=== PATIENT | female | born 1940 | race Caucasian/White ===

== ENCOUNTER 2022-09-27 07:43 | Outpatient (CLI) | payer BC, SELFPAY ==
--- NOTE | 2022-09-27 08:15 | CRLHL7_ITS ---
For Patients: As a result of the Century Cures Act, medical imaging exams and procedure reports are released immediately into your electronic medical record. You may view this report before your referring provider. If you have questions, please contact your health care provider. Indication: LT HIP OSTEOARTHRITIS Procedure : Informed consent was obtained. The site was marked. Time-out was performed. The skin of the left hip was cleansed with ChloraPrep. A sterile drape was placed. 8 cc of 1 percent lidocaine was administered for superficial anesthesia. Subsequently a 22 gauge spinal needle was introduced into the left hip joint under intermittent fluoroscopic guidance. 7 cc 1 percent lidocaine and 2 cc 40 milligram/cc Depo-Medrol then injected into the left hip. The needle was removed and hemostasis achieved with direct pressure. A dressing was placed. The patient tolerated the procedure well without immediate complication. Total fluoroscopy time 9 seconds. Impression: Successful fluoroscopically guided left hip with 80 milligrams of Depo-Medrol. Dictated by Alvarez Daugherty MD @ 09/27/2022 9:26:19 AM (Electronically Signed)
== END 2022-09-27 07:44 | disposition home or self-care (01) ==
PROVIDERS: PCP Family Medicine; Visit Provider Physician Assistant Surgical
DX: M16.12 Unilateral primary osteoarthritis, left hip (principal)
CPT/HCPCS: 20610; 77002

== ENCOUNTER 2022-10-15 13:29 | Outpatient (CLI) | payer BC, SELFPAY ==
--- NOTE | 2022-10-15 14:18 | PC.NURSE ---
20g PIV placed into right AC. Bubble study completed with the use of 9cc of saline and 1cc air. This was completed twice. Patient tolerated well. PIV taken out and catheter intact.
== END 2022-10-15 13:30 | disposition home or self-care (01) ==
LOC: RAD 13:30
PROVIDERS: PCP Family Medicine; Visit Provider Family Medicine
DX: H53.9 Unspecified visual disturbance (principal)
CPT/HCPCS: 93306; 96374

== ENCOUNTER 2023-05-16 09:45 | Outpatient (CLI) | payer BC, SELFPAY ==
--- NOTE | 2023-05-16 10:15 | CRLHL7_ITS ---
For Patients: As a result of the Century Cures Act, medical imaging exams and procedure reports are released immediately into your electronic medical record. You may view this report before your referring provider. If you have questions, please contact your health care provider. Indication: Unilateral primary osteoarthritis, left hip pain Comparison: 09/27/2022 Procedure : Informed consent was obtained. The site was marked. Time-out was performed. The skin of the left hip was cleansed with ChloraPrep. A sterile drape was placed. 8 cc of 1 percent lidocaine was administered for superficial anesthesia. Subsequently a 22 gauge spinal needle was introduced into the left hip joint under intermittent fluoroscopic guidance. Injection of 7 cc 1 percent lidocaine and 2 cc 40 milligram/cc Depo-Medrol into the left hip joint then performed. The needle was removed and hemostasis achieved with direct pressure. A dressing was placed. The patient tolerated the procedure well without immediate complication. Total fluoroscopy time 13 seconds. Impression: Successful fluoroscopically guided left hip injection with 80 milligrams of Depo-Medrol. Dictated by Alvarez Daugherty MD @ 05/16/2023 10:55:55 AM (Electronically Signed)
== END 2023-05-16 09:46 | disposition home or self-care (01) ==
LOC: RAD 09:45
PROVIDERS: PCP Family Medicine; Visit Provider Physician Assistant Surgical
DX: M16.12 Unilateral primary osteoarthritis, left hip (principal)
CPT/HCPCS: 20610; 77002; Q9966

== ENCOUNTER 2023-11-28 10:50 | Outpatient (CLI) | payer BC, SELFPAY ==
--- NOTE | 2023-11-28 11:15 | FL_ITS ---
Patient: GWEN JOHNSON Facility:?[facility] Patient ID:?[id number] Site Patient ID:?[id number]. Site :?[id number] Study:?XRay-Hip Left Injection under fluoro Lobo Lira READ-11/28/2023 12:10:44 PM Ordering Physician:JIMMY CANO Final Report: Indication: Left hip pain Comparison: 11/26/2023 Procedure : Informed consent was obtained. The site was marked. Time-out was performed. The skin of the left hip was cleansed with ChloraPrep. A sterile drape was placed. 8 cc of 1 percent lidocaine was administered for superficial anesthesia. Subsequently a 22 gauge spinal needle was introduced into the left shoulder joint under intermittent fluoroscopic guidance. Injection of 7 cc 1 percent lidocaine and 1 cc 80 milligram/cc Depo-Medrol then performed. The needle was removed and hemostasis achieved with direct pressure. A dressing was placed. The patient tolerated the procedure well without immediate complication. Total fluoroscopy time 6 seconds. Impression: Successful fluoroscopically guided left hip injection with 80 milligrams of Depo-Medrol Dictated by Alvarez Daugherty MD @ 11/28/2023 12:28:17 PM Signed by:?Alvarez Daugherty MD @11/28/2023 12:28:17 PM (Electronic Signature)
== END 2023-11-28 10:51 | disposition home or self-care (01) ==
PROVIDERS: PCP Family Medicine; Visit Provider Physician Assistant Surgical
DX: M25.552 Pain in left hip (principal); M16.12 Unilateral primary osteoarthritis, left hip
CPT/HCPCS: 20610; 77002; Q9966

== ENCOUNTER 2024-04-03 09:53 | Outpatient (CLI) | payer BC, SELFPAY ==
--- NOTE | 2024-04-03 10:15 | CRLHL7_ITS ---
For Patients: As a result of the Century Cures Act, medical imaging exams and procedure reports are released immediately into your electronic medical record. You may view this report before your referring provider. If you have questions, please contact your health care provider. Indication: Indication: Left hip pain Comparison: 11/28/2023 Procedure : Informed consent was obtained. The site was marked. Time-out was performed. The skin of the left hip was cleansed with ChloraPrep. A sterile drape was placed. 8 cc of 1 percent lidocaine was administered for superficial anesthesia. Subsequently a 22 gauge spinal needle was introduced into the left hip joint under intermittent fluoroscopic guidance. Injection of 7 cc 1 percent lidocaine and 1 cc 80 milligram/cc Depo-Medrol then performed. The needle was removed and hemostasis achieved with direct pressure. A dressing was placed. The patient tolerated the procedure well without immediate complication. Total fluoroscopy time 20 seconds. Impression: Successful fluoroscopically guided left hip injection with 80 milligrams of Depo-Medrol Dictated by Alvarez Daugherty MD @ 04/03/2024 2:29:35 PM (Electronically Signed)
== END 2024-04-03 09:54 | disposition home or self-care (01) ==
LOC: RAD 09:53
PROVIDERS: PCP Family Medicine; Visit Provider Physician Assistant Surgical
DX: M25.552 Pain in left hip (principal); M16.12 Unilateral primary osteoarthritis, left hip
CPT/HCPCS: 20610; 77002; J1010; Q9966

== ENCOUNTER 2024-05-22 09:14 | Outpatient (CLI) | payer BC, SELFPAY ==
--- NOTE | 2024-05-22 11:03 | W.ANESCHARGE ---
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
--- NOTE | 2024-05-22 11:14 | P.ANES_ITS ---
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
== END 2024-05-22 09:15 | disposition home or self-care (01) ==
LOC: OP CLINIC 09:15
PROVIDERS: PCP Family Medicine; Visit Provider Internal Medicine Gastroenterology
DX: Z12.11 Encounter for screening for malignant neoplasm of colon (principal); D12.2 Benign neoplasm of ascending colon; D12.3 Benign neoplasm of transverse colon; K64.8 Other hemorrhoids; Z86.0101 Personal history of adenomatous and serrated colon polyps
CPT/HCPCS: 00811; 45380; 45385; 88305; 99100; J2405; J2704

== ENCOUNTER 2024-07-07 11:15 | Outpatient (RCR) | payer BC, SELFPAY ==
--- NOTE | 2024-05-26 16:49 | PT.OPE ---
PT [facility] Outpatient Eval PT [facility] Outpatient Eval Start: 05/25/24 13:31 Freq: Status: Active Protocol: Document 05/26/24 16:48 CJT (Rec: 05/26/24 16:49 CJT [id number]) E-signed By Edison Norman PT Physical Therapy Outpatient Evaluation Insurance Information Recert Due Date 08/24/24 Insurance Name Medicare B Medical Diagnosis LBP chronic Degenerative scoliosis Treating Diagnosis LBP Imaging Report Information X-Ray (05/11/24) There is a advanced double convex lumbar scoliosis with the major curve measuring 36 degrees with little overall change. Advanced disc and facet degeneration. 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 No acute or suspicious bone lesion. No new compression deformity. Referring MD Luna, Mihir HOGAN Subjective Subjective Pt presents with complaints of lower back/upper hip pain. PT has been dealing with this pain for a long time. Pt was shopping this AM and had so much pain that she had to stop and go home. Rest helps to relieve the pain. When pt is walking she feels no pain, but when she is stopping and starting consistently she has more pain . Pain Comments 02/18 Date of Last Physician Visit 05/11/24 Current Work Status Retired Precautions Therapy Limitations/Systems Review Not Limited Objective Other/Pertinent Objective Lumbar ROM Extension - can extend just beyond neutral, experiences some discomfort in low back Flexion - no limitations, no pain R/L Side Bend - minimal limitations noted R/L Rotation - minimal limitations noted. R Hip ROM Flexion - 120 IR/ER - 35/26 Extension - 5 L Hip ROM Flexion - 120 IR/ER - 35/18 Extension - 5 R knee ROM - 0-0-130 L knee ROM - 0-0-130 R Hip Strength Flexion - 4+/5 MMT Abduction - 4/5 MMT Adduction - 4+/5 MMT IR - 5/5 MMT ER - 5/5 MMT Extension - 4+/5 MMT L Hip Strength Flexion - 4/5 MMT Abduction - 4/5 MMT Adduction - 4+/5 MMT IR - 5/5 MMT ER - 5/5 MMT Extension - 4/5 MMT R knee Extension - 5/5 MMT R Knee Flexion - 4+/5 MMT L knee Extension - 5/5 MMT L knee Flexion - 4+/5 MMT R ankle DF - 5/5 MMT L ankle DF - 5/5 MMT Palpation: pt reports pain/ tenderness with palpation to B glute med, L piriformis Gait: no deviations noted Special Testing Slump: negative B, feels tension behind knees SLR: negative B FADIR: negative B CATIA: negative B Carrie's: positive L>R Piriformis: positive L>R Hamstring: negative Pelvis: R anterior DTRs: 1+ bilaterally patell and achilles Assessment Assessment/Impression Ofelia is a very pleasant 83 year old female who presents to our clinic for evaluation and treatment of low back pain . Pt presents with deficits in B LE strength and AROM (see objective). It does seem that Ofelia's pain is primarily due to muscle fatigue in her posterior hips. She is also quite tight in her anterior hips bilaterally. She will benefit from consistent LE strengthening and stretching as well as appropriate core strengthening exercises. The nature of the pts condition was explained and all questions were answered to the pts satisfaction. Skilled PT services are medically necessary to address deficits and return patient to highest level of function. Recommend physical therapy sessions 1-2/ week for 4-6 weeks. Pt agrees with this plan. Printout of HEP was given for I completion and pt gives verbal understanding of each exercise . Primary Functional Limitations Standing, walking, yardwork, housework Plan of Care Rehabilitation Potential Good Physical Therapy Goals STG - To be completed in 2-3 weeks: 1. Pt will report reduction in back pain by factor of 2 so that they may perform all ADLs with tolerable level of pain. 2. Pt will demonstrate ability to perform pelvic tilt with good coordination as indication of appropriate firing of pelvic and lumbar stabilizing muscles to provide greater support for pelvis and lumbar spine. 3. Pt will demonstrate 5/5 MMT for all LE motions without reproduction of pain to provide greater support to pelvis and lumbar spine. LTG - To be completed in 6 weeks: 1. Pt to be I with HEP so that they may I manage progression of symptoms. 2. Pt will report ability to tolerate 30+ minutes of standing so that they may shop for groceries at store. Treatment Plan/Direct Interventions Electrical Stimulation,Heat, Joint Mobilization,Manual Therapy,Neuromuscular Re-ed, Self-Care/Home Management, Therapeutic Activities, Therapeutic Exercises Frequency/Duration 1-2/week for 4-6 weeks Patient Will Be Discharged From Therapy Completion of LTG(s),Skills Plateau,Independent w/HEP, Independently Progressing Evaluation Billing Untimed Code Treatment Minutes 40 PT Eval No Charge No Complexity Low Certification Information Initial Certification Date 05/26/24 Ending Certification Date 08/24/24 Provider Signature Required Yes Provider Signature Shows Agreement With POC & Medical Necessity Physician NPI Number Write NPI# Here Physician Comment/Change : Physician Signature & Date Requested Please Sign/Date Here
--- NOTE | 2024-06-25 17:02 | PT.OPDN ---
PT [facility] Outpatient Daily Note PT [facility] Outpatient Daily Note Start: 05/25/24 13:31 Freq: Status: Active Protocol: Document 06/25/24 14:16 CJT (Rec: 06/25/24 15:16 CJT [id number]) E-signed By Edison Norman, PT PT OP Daily Progress Note Visit Information Note Type Recert/Progress Note Visit Number 9 Physician Authorized Visits eval and treat Insurance Information Recert Due Date 08/24/24 Insurance Name Medicare B Medical Diagnosis LBP chronic Degenerative scoliosis Treating Diagnosis LBP Imaging Report Information X-Ray (05/11/24) There is a advanced double convex lumbar scoliosis with the major curve measuring 36 degrees with little overall change. Advanced disc and facet degeneration. 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 No acute or suspicious bone lesion. No new compression deformity. Referring MD Luna, Mihir HOGAN Subjective Preferred Name Ofelia Pantoja Pt continues to have significant pain in her L anterior hip. 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 Sitting seems to be the only thing that allows for reduced pain. Low back continues to ache with long walks. Pt has noted that STM to the hip does help to relieve her pain but her pain always returns the next day. Date of Last Physician Visit 05/11/24 Home Exercise Home Exercise Comments Access Code: [email or web address] URL: [email or web address] Date: 05/26/2024 Prepared by: Edison Norman Exercises - Supine Bridge - 1 x daily - 7 x weekly - 3 sets - 15 reps - Clamshell with Resistance - 1 x daily - 7 x weekly - 3 sets - 20 reps - Quadruped Piriformis Stretch - 1-2 x daily - 7 x weekly - 60 seconds hold - Half Kneeling Hip Flexor Stretch - 1-2 x daily - 7 x weekly - 60 seconds hold - Standing Hip Flexor Stretch with Foot Elevated - 1-2 x daily - 7 x weekly - 60 seconds hold Objective Other/Pertinent Objective Lumbar ROM Extension - can extend just beyond neutral, experiences some discomfort in low back Flexion - no limitations, no pain R/L Side Bend - minimal limitations noted R/L Rotation - minimal limitations noted. R Hip ROM Flexion - 120 IR/ER - 35/26 Extension - 5 L Hip ROM Flexion - 120 IR/ER - 35/18 Extension - 5 R knee ROM - 0-0-130 L knee ROM - 0-0-130 R Hip Strength Flexion - 5/5 MMT Abduction - 5/5 MMT Adduction - 5/5 MMT IR - 5/5 MMT ER - 5/5 MMT Extension - 4+/5 MMT L Hip Strength Flexion - 5/5 MMT Abduction - 5/5 MMT Adduction - 5/5 MMT IR - 5/5 MMT ER - 5/5 MMT Extension - 4+/5 MMT R knee Extension - 5/5 MMT R Knee Flexion - 4+/5 MMT L knee Extension - 5/5 MMT L knee Flexion - 4+/5 MMT R ankle DF - 5/5 MMT L ankle DF - 5/5 MMT Pelvis: relatively level LLD: 91.0cm bilaterally Patient Instructed in Risks/Benefits Yes Therapeutic Exercise Therapeutic Exercise Minutes (minutes) 30 Therapeutic Exercise: To Restore Seated Hip IR and ER with YTB Functional Status 2 x 20 ea Prone hip IR/ER eccentrics with manual resistance 2 x 8 ea Seated piriformis stretch x 60 Seated thoracic rotations with OP Treatment Minutes Untimed Code Treatment Minutes 15 Timed Code Treatment Minutes 30 Total Treatment Time 45 Billing Units Therapeutic Exercise Units 2 Assessment/Impression Assessment/Impression Ofelia has shown improved LE and core strength during her time in therapy thus far (5 weeks, 9 visits), however, her symptoms remain unchanged and her L hip pain has progressively gotten worse. It does seem that her L hip pain is due to impingement as she notes increased pain with hip flexion and IR, although I do feel that a case could be made that her pain is stemming from L1/L2 level of her spine due to her scoliosis. All attempts to reduce pts pain have unfortunately been short- lasting at best. Pt is interested in consulting with Dr. Luna in our spine clinic again to discuss potential for DREA. She is also interested in meeting with our orthopedics department to further discuss her hip pain. I did update Ofelia's HEP again this date to have her try some new exercises over the weekend and will plan to re-evaluate her symptoms when she returns. Recommend continued PT services to address deficits and return pt to highest level of function. Plan of Care Physical Therapy Goals STG - To be completed in 2-3 weeks: 1. Pt will report reduction in back pain by factor of 2 so that they may perform all ADLs with tolerable level of pain. 2. Pt will demonstrate ability to perform pelvic tilt with good coordination as indication of appropriate firing of pelvic and lumbar stabilizing muscles to provide greater support for pelvis and lumbar spine. MET 3. Pt will demonstrate 5/5 MMT for all LE motions without reproduction of pain to provide greater support to pelvis and lumbar spine. LTG - To be completed in 6 weeks: 1. Pt to be I with HEP so that they may I manage progression of symptoms. 2. Pt will report ability to tolerate 30+ minutes of standing so that they may shop for groceries at store. Daily Plan of Care Continue per POC
== END 2024-09-24 14:44 | disposition home or self-care (01) ==
PROVIDERS: PCP Family Medicine; Visit Provider Family Medicine
DX: M54.50 Low back pain, unspecified (principal); G89.29 Other chronic pain; M41.50 Other secondary scoliosis, site unspecified; Z51.89 Encounter for other specified aftercare
CPT/HCPCS: 97032; 97110; 97140; 97161

== ENCOUNTER 2024-07-29 08:39 | Outpatient (CLI) | payer BC, SELFPAY ==
--- NOTE | 2024-07-29 09:15 | CRLHL7_ITS ---
For Patients: As a result of the Century Cures Act, medical imaging exams and procedure reports are released immediately into your electronic medical record. You may view this report before your referring provider. If you have questions, please contact your health care provider. EXAM: MRI OF THE LEFT HIP, WITHOUT CONTRAST CLINICAL INDICATION: Hip pain. PRIOR SURGERY: None. COMPARISON PLAIN FILMS: 24 October 2021 COMPARISON CROSS-SECTIONAL IMAGING STUDIES: None. TECHNICAL: Axial, sagittal and coronal PDFS small field of view images of the hip. Coronal and axial T1 and PDFS large field of view images of the entire pelvis. 1.5 [facility] MR scanner. FINDINGS: LEFT HIP: Effusion: Moderate-sized effusion. Mild reactive synovitis. No erosion. Articular Cartilage/Surfaces: Heterogeneous T2 signal and irregular grade 2 to grade 3 thinning and pinpoint grade 4 full-thickness fissuring anterior margin of the acetabulum and femoral head. Subchondral cysts and mild sclerosis and edema in the anterior acetabulum. Small marginal osteophytes femoral head. Labrum: No discrete tear. Lobulated periarticular fluid collection posterior superior margin of the joint roughly 11-12 mm diameter. Joint Bodies: None seen. Proximal Femoral Morphology: No significant osseous bump. Femoral head-neck offset is within normal limits. Acetabular Morphology: No focal or global retroversion. No significant overcoverage. AVN: Not present. RIGHT HIP: On the large field of view images of the entire pelvis, the contralateral hip joint is maintained. OSSEOUS STRUCTURES: No fracture, marrow edema or marrow replacement process. MUSCULOTENDINOUS STRUCTURES AND BURSAE: Small volume of multifocal fluid in the left iliopsoas bursa. Intact tendons. Minor edema around the intact left gluteal tendon insertion with no trochanteric bursitis. INTRAPELVIC CONTENTS: No mass, fluid collection or adenopathy. No inguinal hernia. NEUROVASCULAR STRUCTURES: No abnormality involving the visualized sacral nerve roots or proximal femoral or proximal sciatic nerves. No aneurysmal dilation of the visualized arterial circulation. IMPRESSION: 1. Mild osteoarthritis left hip. Reactive joint effusion and mild synovitis. Small periarticular ganglion posterior superior margin. No definitive labral tear. 2. Mild multilocular left iliopsoas bursitis. Dictated by Terence Keita MD @ 07/30/2024 9:20:47 AM (Electronically Signed)
--- NOTE | 2024-07-29 10:00 | CRLHL7_ITS ---
For Patients: As a result of the Century Cures Act, medical imaging exams and procedure reports are released immediately into your electronic medical record. You may view this report before your referring provider. If you have questions, please contact your health care provider. INDICATION: Low back pain. TECHNIQUE: Multisequence multiplanar MRI of the lumbar spine without the use of intravenous contrast. COMPARISON: Correlated with lumbar spine radiographs dated 05/11/2024. FINDINGS: Rightward scoliosis of the lumbar spine with apex at the L1-L2 level. Posterior aspects of the vertebral bodies are aligned. Vertebral body heights are maintained. No T1 hypointense infiltrative lesion is identified. An L1 vertebral hemangioma is incidentally noted. There is multilevel disc desiccation and height loss. The conus medullaris terminates normally at the L1 level. Few subcentimeter renal parenchymal hyperintensities too small to characterize but statistically likely to represent cysts. T12-L1: No significant spinal canal or neural foraminal stenosis. L1-L2: Shallow symmetric disc bulge. Mild facet joint arthrosis. No significant spinal canal or neural foraminal stenosis. L2-L3: Shallow symmetric disc bulge. Mild facet joint arthrosis. No significant spinal canal or neural foraminal stenosis. L3-L4: Symmetric disc bulge with small right subarticular/foraminal disc protrusion. Mild narrowing of the right lateral recess with questionable mass effect on the traversing right L4 nerve root (series 7, image 22). No high-grade spinal canal stenosis. Mild right and no significant left neural foraminal narrowing. L4-L5: Symmetric disc bulge. Moderate facet joint arthrosis. Mild narrowing of the lateral recesses without high-grade spinal canal stenosis. Mild-moderate right and mild left neural foraminal narrowing. L5-S1: Symmetric disc bulge. Mild facet joint arthrosis. Mild narrowing of the right lateral recess without high-grade spinal canal stenosis. No high-grade neural foraminal narrowing. IMPRESSION: 1. Rightward scoliosis of the lumbar spine with apex at the L1-L2 level. 2. At L3-L4, small right subarticular/foraminal disc protrusion, narrowing of the right lateral recess with questionable mass effect on the traversing right L4 nerve root, and mild right neural foraminal narrowing. 3. At L4-L5, mild narrowing of the lateral recesses and mild-moderate right neural foraminal narrowing. Dictated by Wilfredo Rankin MD @ 07/30/2024 9:49:42 PM (Electronically Signed)
--- NOTE | 2024-07-29 10:30 | CRLHL7_ITS ---
For Patients: As a result of the Century Cures Act, medical imaging exams and procedure reports are released immediately into your electronic medical record. You may view this report before your referring provider. If you have questions, please contact your health care provider. Indication: Mid-low back pain. Technique: Multisequence multiplanar MRI of the thoracic spine without the use of intravenous contrast. Comparison: None available. Findings: Leftward curvature of the thoracic spine with apex at the T5-T6 level. Posterior aspects vertebral bodies are aligned. Vertebral body heights are maintained. No T1 hypointense infiltrative lesion is identified. The thoracic spinal cord is normal in signal intensity. There is no significant spinal neural foraminal stenosis. Impression: 1. Leftward scoliosis of the thoracic spine with apex at the T5-T6 level. 2. Mild thoracic spondylosis with no significant spinal canal or neural foraminal stenosis. Dictated by Wilfredo Rankin MD @ 07/30/2024 9:43:11 PM (Electronically Signed)
== END 2024-07-29 08:40 | disposition home or self-care (01) ==
LOC: MRI 08:40
PROVIDERS: PCP Family Medicine; Visit Provider Family Medicine
DX: M54.50 Low back pain, unspecified (principal); M41.86 Other forms of scoliosis, lumbar region; M51.26 Other intervertebral disc displacement, lumbar region; M41.84 Other forms of scoliosis, thoracic region; M47.894 Other spondylosis, thoracic region; S39.012A Strain of muscle, fascia and tendon of lower back, initial encounter; M25.552 Pain in left hip; M16.12 Unilateral primary osteoarthritis, left hip; M25.452 Effusion, left hip
CPT/HCPCS: 72146; 72148; 73721

== ENCOUNTER 2024-08-20 09:39 | Outpatient (CLI) | payer BC, SELFPAY ==
--- NOTE | 2024-08-20 10:15 | CRLHL7_ITS ---
For Patients: As a result of the Century Cures Act, medical imaging exams and procedure reports are released immediately into your electronic medical record. You may view this report before your referring provider. If you have questions, please contact your health care provider. Indication: Left hip pain Comparison: 07/29/2024 MRI Procedure : Informed consent was obtained. The site was marked. Time-out was performed. The skin of the left hip was cleansed with ChloraPrep. A sterile drape was placed. 8 cc of 1 percent lidocaine was administered for superficial anesthesia. Subsequently a 22 gauge spinal needle was introduced into the left hip joint under intermittent fluoroscopic guidance. 7 cc 1 percent lidocaine and 2 cc 40 milligram/cc Depo-Medrol then injected into the left hip joint. The needle was removed and hemostasis achieved with direct pressure. A dressing was placed. The patient tolerated the procedure well without immediate complication. Total fluoroscopy time 0.07 minutes. Impression: Successful fluoroscopically guided left hip with 80 milligrams of Depo-Medrol. Dictated by Alvarez Daugherty MD @ 08/20/2024 12:08:16 PM (Electronically Signed)
== END 2024-08-20 09:40 | disposition home or self-care (01) ==
LOC: RAD 09:40
PROVIDERS: PCP Family Medicine; Visit Provider Physician Assistant Surgical
DX: M25.552 Pain in left hip (principal); M16.12 Unilateral primary osteoarthritis, left hip
CPT/HCPCS: 20610; 77002; Q9966

== ENCOUNTER 2024-12-21 08:09 | Day surgery (SDC) | payer BC, MEDICARE, SELFPAY ==
[2024-12-21] VITALS (24 sets, daily range): BP systolic 116–163; BP diastolic 53–87; PULSE 63–85; RESP 12–18; TEMP 35.5–36.7; O2SAT 91–99; BMI 19.1
[2024-12-21] MEDS: SODIUM CHLORIDE 0.9 % (FLUSH) 10 ML SYRINGE IVF (09:07)
[2024-12-21] MEDS: LACTATED RINGERS 1000 ML 1,000 ML 100 ML IV (09:07)
[2024-12-21] MEDS: OXYCODONE (CR) 10 MG TAB.ER.12H PO (09:09)
[2024-12-21] MEDS: ACETAMINOPHEN 500 MG TABLET 1000 MG PO ×2 (09:09→17:41)
--- NOTE | 2024-12-21 10:17 | W.PM.H&PU ---
History & Physical Update History & Physical Update H&P Reviewed and patient assessed: No changes noted
--- NOTE | 2024-12-21 10:45 | CRLHL7_ITS ---
For Patients: As a result of the Cures Act, medical imaging exams and procedure reports are released immediately into your electronic medical record. You may view this report before your referring provider. If you have questions, please contact your health care provider. Indication: Hip replacement surgery Technique: AP hip fluoroscopic images. Fluoroscopy time 25.9 seconds. Findings/Impression: Hardware from a left total hip arthroplasty is in satisfactory position. Dictated by Alvarez Daugherty MD @ 12/22/2024 10:12:37 AM (Electronically Signed)
[2024-12-21] MEDS: fentaNYL 100 MCG/2 ML inj IVP (10:58)
--- NOTE | 2024-12-21 10:58 | P.NB_ITS ---
Nerve Block Nerve Block Time Seen by Provider: 10:55 Date Seen: 12/21/24 Type of block requested by surgeon for post-operative analgesia: MARIALUISA/LFCN Side: left Time out performed: Yes Verification of patient name: Yes Verification of date of : Yes Site marking: site marked Name of person performing procedure: Tim Continuous monitoring Was continuous monitoring of O2 sat, B/P, cardiac technologist, recorded every 15 minutes?: Yes Procedure Checklist: sterile prep, needles and gloves Ultrasound guided. Images saved: Yes Medications given in 5ml increments after negative aspiration: Ropivicaine %: 0.5 mL: 30 Needle gauge: 20 Precedex (mcg): 25 Patient tolerated procedure well: Yes Additional comments: Needle noted below psoas tendon needle noted adjacent to LFCN Block Charges Block Charge (with Pro Fee): Other Periph Nerve Block Use of Ultrasound Machine for Block: Yes- US Guidance/pain block
--- NOTE | 2024-12-21 10:58 | P.ANES_ITS ---
Anesthesia Charges Start Date/Time Anesthesia Start Date: 12/21/24 Anesthesia Start Time: 11:10 Stop Date/Time Anesthesia Stop Date: 12/21/24 Anesthesia Stop Time: 13:45 Summary Extremes of Age - Over 70 or under 1: MDA Coding CPT Codes CPT Codes: ANESTH HIP ARTHROPLASTY - 66100 ([id number]) P2 - PATIENT W/MILD SYST DISEASE, QK - GRIPS 2-4 CNCRNT ANES PROC, QX - NEON TECHNICIAN SVC W/ MD MED DIRECTION Additional Codes: Summary - Extremes of Age - Over 70 or under 1: MDA ([id number])
--- NOTE | 2024-12-21 10:58 | W.ANESCHARGE ---
Anesthesia Charges Start Date/Time Anesthesia Start Date: 12/21/24 Anesthesia Start Time: 11:10 Stop Date/Time Anesthesia Stop Date: 12/21/24 Anesthesia Stop Time: 13:45 Summary Extremes of Age - Over 70 or under 1: MDA Coding CPT Codes CPT Codes: ANESTH HIP ARTHROPLASTY - 44004 ([id number]) P2 - PATIENT W/MILD SYST DISEASE, QK - INTERNET DATABASE SPECIALIST 2-4 CNCRNT ANES PROC, QX - SHIP CAPTAIN SVC W/ MD MED DIRECTION Additional Codes: Summary - Extremes of Age - Over 70 or under 1: MDA ([id number])
[2024-12-21] MEDS: MIDAZOLAM HCL 1 MG/ML inj IVP (10:59)
--- NOTE | 2024-12-21 10:59 | SUR.PREOP ---
1050TIME?OUT:? PT/RN/MDA?VERIFICATION?OF?SURGICAL?SITE,?PROCEDURE,?AND?CONSENT OBTAINED?PRIOR?TO?INVASIVE?PROCEDURE.
--- NOTE | 2024-12-21 11:28 | CRLHL7_ITS ---
For Patients: As a result of the Cures Act, medical imaging exams and procedure reports are released immediately into your electronic medical record. You may view this report before your referring provider. If you have questions, please contact your health care provider. Indication: POST OP LEFT AN Technique: AP pelvis and lateral view left hip Findings/Impression: Hardware from a left total hip arthroplasty is in satisfactory position. Bone alignment is normal. No sign of acute fracture. Postop changes are within normal limits. Dictated by Alvarez Daugherty MD @ 12/22/2024 10:17:36 AM (Electronically Signed)
[2024-12-21] MEDS: CEFAZOLIN 2 GM in 0.9 % SODIUM CHLORIDE Mini-bag 100 ML IVPB (11:40)
[2024-12-21] MEDS: TRANEXAMIC ACID 100 MG/ML INJ 1000 MG IV (11:40)
--- NOTE | 2024-12-21 13:03 | PM.ORPRC ---
Procedure Note Date of procedure: 12/21/24 Procedure: PREOPERATIVE DIAGNOSIS: 1. Left hip osteoarthritis, severe, primary POSTOPERATIVE DIAGNOSIS: 1. Left hip osteoarthritis, severe, primary PROCEDURE: 1. Left total hip arthroplasty-anterior approach 2. C-arm fluoroscopy operated and interpreted live/real-time by Rodo Weber M.D. for intraoperative acetabular prep assessment, stem positioning assessment, leg length and offset evaluation, and final implant positioning. 2 C-arm spot images were saved/sent to PACS. Fluoroscopy time was 25.9 seconds with total dose of 2.64 mGy. SURGEON: Rodo Weber MD. BIODIESEL PLANT OPERATIONS ENGINEER: Ok Hernandez PA-C; LUCINA Deluca - Of note, a skilled certified anesthesiologist assistant was critical for this case to aid in patient positioning, tissue retraction, limb manipulation/positioning, dislocation/relocation, patient safety, and closure. ANESTHESIA: Spinal anesthetic EBL: 300 mL IMPLANTS: DePuy J&J uncemented total hip Kelford cup size 48, hole eliminator, +4 neutral liner Trigg cemented stem, standard offset, size 3 8.5 mm centralizer. Small canal restrictor. +1 mm ceramic 32mm head. COMPLICATIONS: None evident INDICATIONS: The patient is a pleasant 84-year-old female who has experienced severe left hip pain and difficulty bearing weight. Workup included x-rays which revealed severe osteoarthrosis in the hip. Given the deformity, the dysfunction, and the pain, as well as the failure of nonoperative management, recommendation was made for surgery. FINDINGS: Full-thickness chondral loss diffusely throughout the femoral head and to a lesser degree acetabulum. DESCRIPTION OF PROCEDURE: Following a thorough discussion of risks, benefits, and alternatives consent was obtained and the left hip was marked. The patient was brought to the operating room and placed supine on the operating table. Induction of anesthesia was undertaken. 1 g IV Ancef and 1 g tranexamic acid was administered within 1 hr of incision preoperatively. Proper time-out was performed identifying proper patient, site, procedure. The operative extremity was prepped and draped in the appropriate sterile fashion using ChloraPrep after the patient was positioned on the [place] table with head in neutral alignment and all bony prominences well padded. C-arm fluoroscopic imaging was utilized to confirm proper pelvis rotation and position, and to get true AP films of both the contralateral left, and the affected left hip. This is for comparison. A longitudinal incision was made starting approximately 1 cm distal to the ASIS, and 3-4 cm lateral. The incision was extended distally aiming toward the lateral border the patella. Sharp incision through skin and bovie cautery through the subcutaneous tissue allowed identification of the TFL fascia. This was sharply divided, and the fascia bluntly released from the muscle fibers as we dissected medial. Upon coming to the medial border, we were able to retract the TFL laterally, and penetrated the deeper fascia and identify the crossing circumflex vessels. These were ligated/cauterized. The rectus was elevated from the capsule, and retractors placed laterally and medially along the femoral neck to help with visualization of the capsule. We then performed an inverted T capsulotomy. The capsule was tagged for later repair. Retractors were placed inside the capsule. The femoral neck was visualized after releasing medially down to the lesser trochanter, along the saddle laterally, and up onto the acetabulum. The femoral neck cut was made in line with our preoperative templating. The head was removed in a single piece, and sized. We turned our attention to acetabular preparation. Initially, the labrum was resected from around the perimeter, the pulvinar was excised, allowing us to visualize the false wall. We started the reaming with a 43 mm reamer. This was medialized down to the true wall. We then enlarged our reamers sequentially up to one size less than the selected cup size. We trialed at the same size and found it to have an excellent fit. The selected cup was then opened, inserted, and impacted in line with the goal of 40-45? of abduction, and 20-25? of anteversion. This was confirmed on C-arm fluoroscopic imaging to be in the appropriate/goal position. Once the cup was placed we placed a hole eliminator and a liner consistent with preop planning. Attention was turned to the femoral preparation. The limb was extended, externally rotated, and adducted. The posteromedial capsule was released, as retractors were placed allowing excellent access to the proximal femur. Initially a card boxer was followed by canal finder followed by various broaches. We broached sequentially up to size noted above, found it to have excellent rotational control, and trialing various heads and necks, revealed that appropriate neck offset, and the above noted head size provided the greatest stability, and episcopalian of length, and offset. C-arm fluoroscopic imaging confirmed position of the stem, as well as leg lengths, which were compared with the pre procedure all fluoroscopic images. Trial implants were removed and a thorough irrigation with normal saline was performed. Cement was mixed on back table. The cement restrictor was placed deep after thorough irrigation and preparation of the femoral canal, followed by cementing, pressurizing, and stem insertion while holding it in valgus to avoid a varus position. Trial heads were again inserted and found to have excellent stability and length when compared to the contralateral lower extremities. Thus, the real heads were open, and inserted. After reducing, the leg was placed through range of motion and stability was confirmed anterior, posterior, and lateral. A 3 min Betadine soak was then performed, and thorough irrigation with normal saline followed. Closure of the capsule was performed with #1 PDS. Bleeding was confirmed to be controlled at this stage, and the TFL fascia was closed with #0 strata fix. Subcutaneous, and subcuticular closure was performed with 2-0 Vicryl and 4-0 Monocryl, respectively. Dressings were applied, and the patient was awoken from anesthesia and transferred the PACU in stable condition. A skilled certified anesthesiologist assistant was critical for this case to aid in patient positioning, tissue retraction, proximal femur exposure, limb manipulation/positioning, dislocation/relocation, patient safety, and closure. PLAN: 1. Weight bear as tolerated operative extremity. 2. 23 hr perioperative antibiotics. 3. Ice. 4. PT/OT consults for ambulation assistance/mobility education. 5. Social work consult for discharge planning. 6. DVT prophylaxis with at SCDs and Xarelto x5 days followed by aspirin for a total of 1 month..
--- NOTE | 2024-12-21 13:45 | P.ANES_ITS ---
Anesthesia Charges Start Date/Time Anesthesia Start Date: 12/21/24 Anesthesia Start Time: 11:10 Stop Date/Time Anesthesia Stop Date: 12/21/24 Anesthesia Stop Time: 13:45 Summary Extremes of Age - Over 70 or under 1: RETIREMENT ADMINISTRATOR Coding CPT Codes CPT Codes: ANESTH HIP ARTHROPLASTY - 67870 ([id number]) P2 - PATIENT W/MILD SYST DISEASE, QK - SEMICONDUCTOR ENGINEER 2-4 CNCRNT ANES PROC, QX - RETIREMENT ADMINISTRATOR SVC W/ MD MED DIRECTION Additional Codes: Summary - Extremes of Age - Over 70 or under 1: RETIREMENT ADMINISTRATOR ([id number])
--- NOTE | 2024-12-21 13:45 | W.ANESCHARGE ---
Anesthesia Charges Start Date/Time Anesthesia Start Date: 12/21/24 Anesthesia Start Time: 11:10 Stop Date/Time Anesthesia Stop Date: 12/21/24 Anesthesia Stop Time: 13:45 Summary Extremes of Age - Over 70 or under 1: SPOOL WINDER Coding CPT Codes CPT Codes: ANESTH HIP ARTHROPLASTY - 10734 ([id number]) P2 - PATIENT W/MILD SYST DISEASE, QK - OUTBOARD TECHNICIAN 2-4 CNCRNT ANES PROC, QX - SPOOL WINDER SVC W/ MD MED DIRECTION Additional Codes: Summary - Extremes of Age - Over 70 or under 1: SPOOL WINDER ([id number])
--- NOTE | 2024-12-21 14:23 | SUR.PHASEI ---
patient met discharge criteria per anesthesia
[2024-12-21] MEDS: hydrOXYzine pamoate 25 MG CAPSULE PO (15:56)
[2024-12-21] MEDS: HYDROmorphone 0.5 mg/0.5 ml inj IVP ×2 (15:56→19:56)
[2024-12-21] MEDS: SODIUM CHLORIDE 0.9 % (FLUSH) 10 ML SYRINGE 5 ML IVF ×3 (16:05→21:35)
--- NOTE | 2024-12-21 16:16 | PM.IMCN1 ---
Date of Consult Patient: Noah Patient Consult date: 12/21/24 Requesting Physician: Orthopedics Primary Care Provider: Veronica Kohli MD Consult Narrative Reason for consult: Post op support of HTN, HLD, h/o hyponatremia Narrative: Ofelia Buckley is a 84 year old woman with severe symptomatic left Coxarthrosis undergoes elective left total hip arthroplasty today at [facility], [place], [place], with Dr. Stinson. No complications. Estimated blood loss 300 mL. Known to have postanesthesia nausea and vomiting. Is starting to feel some of this nausea already. Pain presently adequately managed with current level of support. Review of Systems Status of ROS: Reports: 6 or more systems reviewed and unremarkable except as noted in History and below Narrative: Lives alone. Daughter will be helping her for the next week in her home postoperatively. Ordinarily able to carry out her desired activities. Her hope is to be able to resume her usual activities with less pain postoperatively after healing. [facility] Medical History Hyponatremia ?E87.1 - Hypo-osmolality and hyponatremia (ICD-10) History of migraine ?Z86.69 - Personal history of other diseases of the nervous system and sense organs (ICD-10) Breast cancer ?C50.919 - Malignant neoplasm of unspecified site of unspecified female breast (ICD-10) Back problem ?M53.9 - Dorsopathy, unspecified (ICD-10) Osteoporosis ?M81.0 - Age-related osteoporosis without current pathological fracture (ICD-10) Elevated cholesterol ?E78.00 - Pure hypercholesterolemia, unspecified (ICD-10) Hypertension ?I10 - Essential (primary) hypertension (ICD-10) Surgical History History of total left hip arthroplasty (12/21/24) ?Z96.642 - Presence of left artificial hip joint (ICD-10) History of cataract extraction with lens replacement History of arthroscopy of right shoulder (12/15/02) ?Z98.890 - Other specified postprocedural states (ICD-10) History of breast reconstruction (~2019) ?Z98.890 - Other specified postprocedural states (ICD-10) History of mastectomy ?Z90.10 - Acquired absence of unspecified breast and nipple (ICD-10) Social History What is your current living situation?: I presently have a place to live Problems where you live: no known problems In the past 12 months, utilities in danger of being shut off: no In past 12 months, lack of transportation kept you from medical appts, meetings, work, or getting things needed for daily living: no In the past 12 mos, have been you worried that your food would run out before you had money to buy more?: never true In the past 12 mos, the food you bought just didn't last and you didn't have money to buy more?: never true Smoking Status: Never smoker Do you use any of these nicotine containing products: None Second hand tobacco smoke exposure: No How often do you have a drink containing alcohol: 2-3 times a week Alcohol type: wine How many standard drinks containing alcohol do you have on a typical day: 1 or 2 How often do you have six or more drinks on one occasion: Never AUDIT-C Alcohol total score: 3 Non-prescribed substance use: denies use How often does anyone, including family, friends and others, physically hurt you: never How often does anyone, including family, friends and others, insult or talk down to you: never How often does anyone, including family, friends and others, threaten you with harm: never How often does anyone, including family, friends and others, scream or curse at you: never service: No Meds Home Medications and Allergies Home Medications ?Medication ?Instructions ?Recorded ?Confirmed ?Type acetaminophen 325 mg tablet 650 mg PO Q6H PRN 05/18/22 12/21/24 History calcium carbonate 600 mg PO DAILY 05/18/22 12/21/24 History cholecalciferol (vitamin D3) 25 1,000 unit PO DAILY 05/18/22 12/21/24 History mcg (1,000 unit) capsule cyclosporine 0.05 % eye drops in a 1 drp ophthalmic (eye) Q12H 05/18/22 12/21/24 History dropperette flaxseed oil 1,000 mg capsule 1,000 mg PO QDAY 05/18/22 12/21/24 History ([place]-3 Flaxseed Oil) pravastatin 40 mg tablet 40 mg PO HS 05/11/24 12/21/24 History losartan 100 1 tab PO DAILY 11/12/24 12/21/24 History mg-hydrochlorothiazide 25 mg tablet amlodipine 5 mg tablet 5 mg PO HS 12/11/24 12/21/24 History aspirin 81 mg tablet,delayed 81 mg PO BID #50 tabs 12/21/24 Rx release oxycodone 5 mg tablet 2.5 - 5 mg (0.5 - 1 x 5 mg) PO 12/21/24 Rx Q4-6H PRN pain #42 tabs rivaroxaban 10 mg tablet 10 mg PO DAILY #4 tabs 12/21/24 Rx sennosides 8.6 mg-docusate sodium 1 - 4 tab-cap (1 - 4 x 8.6-50 mg) 12/21/24 Rx 50 mg tablet (Senna-S) PO BID PRN constipation #60 tabs Allergies Allergy/AdvReac Type Severity Reaction Status Date / Time penicillin V Allergy Intermediate Hives Verified 12/21/24 08:55 atorvastatin Allergy Unknown myalgia Verified 12/21/24 08:55 metoprolol Allergy Unknown Unknown Verified 12/21/24 08:55 Exam Narrative: Exam Narrative: Examined patient in her hospital room. Anxious. Otherwise no acute distress. Articulate and cooperative. Alert and oriented x4. Conjugate gaze. Cranial nerves 3-12 grossly normal. No focal motor neurologic deficits. Thin body habitus. Lungs are clear to auscultation without wheezing, rhonchi, rales. Chest wall excursions are full. Heart tones with regular rhythm, normal S1-S2 without murmur, gallop, or rub. Abdomen with active bowel sounds, soft, nontender. Thin abdomen. Extremities without edema. Const: Vital Signs, click to edit/add: Vital Signs - 24 hr 12/21/24 09:48 12/21/24 10:50 12/21/24 10:55 Temperature 98.1 F Pulse Rate 70 83 83 Respiratory Rate 16 16 16 Blood Pressure 156/87 H 149/74 H 135/73 Pulse Oximetry 99 97 97 Oxygen Delivery Me thod Room Air Nasal Cannula Nasal Cannula Oxygen Flow Rate 2 2 12/21/24 13:41 12/21/24 13:45 12/21/24 13:50 Temperature 97.2 F L 97.2 F L 97.2 F L Pulse Rate 79 75 74 Respiratory Rate 12 18 14 Blood Pressure 116/65 116/62 120/65 Pulse Oximetry 97 96 97 Oxygen Delivery Me thod Room Air Room Air Room Air Oxygen Flow Rate 12/21/24 13:55 12/21/24 14:00 12/21/24 14:01 Temperature 97.2 F L 97.2 F L 95.9 F L Pulse Rate 73 70 65 Respiratory Rate 12 15 18 Blood Pressure 119/69 121/73 138/72 Pulse Oximetry 97 98 95 Oxygen Delivery Me thod Room Air Room Air Room Air Oxygen Flow Rate 12/21/24 14:05 12/21/24 14:10 12/21/24 14:45 Temperature 97.2 F L 97.2 F L 95.9 F L Pulse Rate 69 69 64 Respiratory Rate 16 18 18 Blood Pressure 122/73 126/73 138/79 Pulse Oximetry 97 96 [address] Room Air Oxygen Flow Rate 12/21/24 15:00 12/21/24 15:05 12/21/24 15:30 Temperature 95.9 F L 96.0 F L Pulse Rate 63 64 Respiratory Rate 18 18 Blood Pressure 163/77 H 160/72 H Pulse Oximetry 95 95 94 Oxygen Delivery Ak thod Room Air Room Air Room Air Oxygen Flow Rate 12/21/24 15:45 12/21/24 16:00 Temperature 96.0 F L 96.0 F L Pulse Rate 71 84 Respiratory Rate 18 18 Blood Pressure 145/81 H 161/84 H Pulse Oximetry 93 93 Oxygen Delivery Ak thod Room Air Room Air Oxygen Flow Rate Assessment and Plan Assessment and plan (1) Primary osteoarthritis of left hip: Problem comment: Moderate Status: Acute (2) Hypertension: Status: Acute (3) Elevated cholesterol: Status: Acute (4) Hyponatremia: Problem comment: - history of hyponatremia, etiology not specified Status: Acute (5) History of total left hip arthroplasty: Problem comment: Left total hip arthroplasty-anterior approach (12/21/24, Dr. Stinson) Status: Acute (6) Postoperative nausea and vomiting: Problem comment: - history of postoperative nausea and vomiting - 12/21/2024: Postoperative nausea without vomiting - antiemetics as needed, adequate hydration, monitor electrolytes, judicious use of analgesics Status: Acute Plan 1. Reviewed impression, plan, recommendations with patient 2. Answered patient's questions to her satisfaction 3. Patient agreeable with above stated plans and recommendations 4. Completed hospitalist portion of hospital discharge for patient Total Time Spent Total Time Spent: 50 minutes
[2024-12-21] MEDS: LACTATED RINGERS 1000 ML 1,000 ML 75 ML IV (17:40)
[2024-12-21] MEDS: ONDANSETRON 2 MG/ML inj 4 MG IVP ×2 (17:41→21:34)
[2024-12-21] MEDS: CEFAZOLIN 1 GM in 0.9 % SODIUM CHLORIDE Mini-bag 100 ML IVPB (17:41)
--- NOTE | 2024-12-21 18:19 | PC.NURSE ---
End of Shift Note: Patient arrived to the unit around 1430 from PACU after having (L)AN. When she arrived she was somewhat sleepy. Pain did start to increase along with nausea which she has received medications for both see MAR. She is refusing to try clear liquids she has taken a few sips of water with her medications. Did also get up with assist of two just to the BSC as she felt like she needed to void her left leg is weak and appear to give out a little. We did use the angela steady to get her back into bed which did work better as the left leg she is having trouble moving. She did have spinal anesthesia with a block. Will continue to monitor until next shift arrives.
[2024-12-21] MEDS: OXYCODONE 5 MG TABLET PO ×2 (19:56→21:45)
[2024-12-21] MEDS: AMLODIPINE 5 MG TABLET PO (21:33)
[2024-12-21] MEDS: SENNOSIDES 1 TAB TABLET 2 TAB PO (21:34)
[2024-12-21] MEDS: PRAVASTATIN SODIUM 20 MG TABLET 40 MG PO (21:35)
[2024-12-22] MEDS: ACETAMINOPHEN 500 MG TABLET 1000 MG PO ×2 (00:04→05:52)
[2024-12-22 00:20] VITALS: RESP 16; O2SAT 95
[2024-12-22] MEDS: CEFAZOLIN 1 GM in 0.9 % SODIUM CHLORIDE Mini-bag 100 ML IVPB (01:35)
[2024-12-22 01:40] VITALS: BP 124/73; PULSE 78; RESP 16; TEMP 36.4; O2SAT 97
[2024-12-22] MEDS: OXYCODONE 5 MG TABLET PO (05:52)
--- NOTE | 2024-12-22 06:16 | PC.NURSE ---
Pt is alert and oriented x3. Pt reports 4/10 pain in left hip, pain managed with scheduled medications. Pt?s left hip dressing is CDI. Pt is up A1 with walker and gait belt, voiding, and tolerating a regular diet. Pt denies passing gas.?
[2024-12-22 06:22] LABS: Basophils Absolute Auto 0.01 K/uL (0.00-0.30); Basophils Percent Auto 0.1 % (0.0-3.0); Hematocrit 48.9 % (33.0-51.0); Hemoglobin* 16.6 gm/dL (12.0-16.0); Immature Granulocytes Abs Auto 0.12 K/uL (0.00-0.30); Immature Granulocytes Pct Auto 1.2 %; Mean Corpuscular HGB Conc 34 gm/dL (32-36); Mean Corpuscular Hemoglobin 30 pg (26-34); Mean Corpuscular Volume 89 fL (80-100); Monocytes Percent Auto 10.2 % (0.0-11.0); Neutrophils Percent Auto 82.5 % (42.0-72.0); Platelet Count* 141 K/uL (140-440); RDW Coefficient of Variation % 12.5 % (11.5-15.5); Red Blood Count 5.52 m/uL (4.00-5.20); White Blood Count* 9.73 K/uL (4.50-11.00)
[2024-12-22 06:28] LABS: Slide Review Reflex No
[2024-12-22 06:30] LABS: Potassium* 3.7 mmol/L (3.6-5.1); Sodium* 133 mmol/L (135-149)
[2024-12-22 06:33] LABS: Blood Urea Nitrogen* 19 mg/dL (7-30); Creatinine* 0.5 mg/dL (0.5-1.5); Est. Creatinine Clearance* 35.47; Estimated Glomerular Filt Rate 94 ml/min
[2024-12-22 07:00] VITALS: PULSE 75; RESP 18; O2SAT 91
[2024-12-22 08:00] VITALS: BP 122/49; PULSE 75; RESP 18; TEMP 36.6; O2SAT 91
[2024-12-22] MEDS: SENNOSIDES 1 TAB TABLET 2 TAB PO (08:40)
[2024-12-22] MEDS: RIVAROXABAN 10 MG TABLET PO (08:40)
--- NOTE | 2024-12-22 08:48 | PM.ORPN ---
Subjective Subjective Date Seen: 12/22/24 Principal diagnosis: Status postop day 1, left total hip arthroplasty - anterior approach Interval history: Patient reports doing okay. No acute events over night. Reports some lightheadedness, which she feels may be due to oxycodone. Pain managed with scheduled and PRN medications, ice. DVT prophylaxis: Rivaroxaban, SCDs, walking. Denies fevers, chills, aches, N/V, CP, SOB/VILLAN[place]VA. Not passing flatus. Ortho Exam Narrative Exam Narrative: -Patient appears comfortable in bed; no apparent acute distress -Alert and oriented times 3 -Operative hip mildly swollen; soft tissues supple; no obvious erythema. Ecchymosis minimal. Warmth appropriate -Surgical dressing clean, dry, intact; no obvious drainage, no erythematous streaking peripheral to the bandage -Bilateral calves soft and supple; no significant swelling, edema, tenderness, erythema, discoloration, warmth, or palpable cords -2+ DP/PT pulses, intact dermatomes and myotomes distally (5/5 strength). Mild numbness about the lateral femoral cutaneous nerve distribution. -small IV plastic cap under left thigh. Skin integrity good; no skin breakdown. Const Vital Signs, click to edit/add: Vital Signs - 24 hr 12/21/24 09:48 12/21/24 10:50 12/21/24 10:55 Temperature 98.1 F Pulse Rate 70 83 83 Pulse Rate [Pulse Oximeter] Respiratory Rate 16 16 16 Blood Pressure 156/87 H 149/74 H 135/73 Blood Pressure [Right Arm] Pulse Oximetry 99 97 97 Oxygen Delivery Method Room Air Nasal Cannula Nasal Cannula Oxygen Flow Rate 2 2 12/21/24 13:41 12/21/24 13:45 12/21/24 13:50 Temperature 97.2 F L 97.2 F L 97.2 F L Pulse Rate 79 75 74 Pulse Rate [Pulse Oximeter] Respiratory Rate 12 18 14 Blood Pressure 116/65 116/62 120/65 Blood Pressure [Right Arm] Pulse Oximetry 97 96 97 Oxygen Delivery Method Room Air Room Air Room Air Oxygen Flow Rate 12/21/24 13:55 12/21/24 14:00 12/21/24 14:01 Temperature 97.2 F L 97.2 F L 95.9 F L Pulse Rate 73 70 65 Pulse Rate [Pulse Oximeter] Respiratory Rate 12 15 18 Blood Pressure 119/69 121/73 138/72 Blood Pressure [Right Arm] Pulse Oximetry 97 98 95 Oxygen Delivery Method Room Air Room Air Room Air Oxygen Flow Rate 12/21/24 14:05 12/21/24 14:10 12/21/24 14:45 Temperature 97.2 F L 97.2 F L 95.9 F L Pulse Rate 69 69 64 Pulse Rate [Pulse Oximeter] Respiratory Rate 16 18 18 Blood Pressure 122/73 126/73 138/79 Blood Pressure [Right Arm] Pulse Oximetry 97 96 94 Oxygen Delivery Method Room Air Room Air Room Air Oxygen Flow Rate 12/21/24 15:00 12/21/24 15:05 12/21/24 15:30 Temperature 95.9 F L 96.0 F L Pulse Rate 63 64 Pulse Rate [Pulse Oximeter] Respiratory Rate 18 18 Blood Pressure 163/77 H 160/72 H Blood Pressure [Right Arm] Pulse Oximetry 95 95 94 Oxygen Delivery Method Room Air Room Air Room Air Oxygen Flow Rate 12/21/24 15:45 12/21/24 16:00 12/21/24 16:30 Temperature 96.0 F L 96.0 F L 96.0 F L Pulse Rate 71 84 65 Pulse Rate [Pulse Oximeter] Respiratory Rate 18 18 18 Blood Pressure 145/81 H 161/84 H 142/66 H Blood Pressure [Right Arm] Pulse Oximetry 93 93 99 Oxygen Delivery Method Room Air Room Air Room Air Oxygen Flow Rate 12/21/24 17:30 12/21/24 18:00 12/21/24 18:30 Temperature 96.1 F L Pulse Rate 70 76 76 Pulse Rate [Pulse Oximeter] Respiratory Rate 18 18 18 Blood Pressure 156/78 H 152/68 H 148/72 H Blood Pressure [Right Arm] Pulse Oximetry 91 98 96 Oxygen Delivery Method Room Air Room Air Room Air Oxygen Flow Rate 12/21/24 19:30 12/21/24 20:30 12/21/24 22:21 Temperature 97.1 F L 97.7 F 97.5 F L Pulse Rate 66 74 Pulse Rate [Pulse Oximeter] 85 Respiratory Rate 18 16 16 Blood Pressure 142/53 H 150/72 H Blood Pressure [Right Arm] 163/80 H Pulse Oximetry 99 97 97 Oxygen Delivery Method Room Air Room Air Room Air Oxygen Flow Rate 12/22/24 00:20 12/22/24 01:40 12/22/24 07:00 Temperature 97.6 F Pulse Rate Pulse Rate [Pulse Oximeter] 78 Respiratory Rate 16 16 18 Blood Pressure Blood Pressure [Right Arm] 124/73 Pulse Oximetry 95 97 91 Oxygen Delivery Method Room Air Room Air Room Air Oxygen Flow Rate 12/22/24 07:00 12/22/24 08:00 Temperature 97.8 F Pulse Rate Pulse Rate [Pulse Oximeter] 75 75 Respiratory Rate 18 18 Blood Pressure Blood Pressure [Right Arm] 122/49 L Pulse Oximetry 91 Oxygen Delivery Method Room Air Oxygen Flow Rate Assessment and Plan Assessment and plan (1) Primary osteoarthritis of left hip: Problem details: Moderate Status: Acute (2) History of total left hip arthroplasty: Problem details: Left total hip arthroplasty-anterior approach (12/21/24, Dr. Stinson) Status: Acute (3) Hypertension: Status: Acute (4) Elevated cholesterol: Status: Acute (5) Hyponatremia: Problem details: - history of hyponatremia, etiology not specified Status: Acute (6) Postoperative nausea and vomiting: Problem details: - history of postoperative nausea and vomiting - 12/21/2024: Postoperative nausea without vomiting - antiemetics as needed, adequate hydration, monitor electrolytes, judicious use of analgesics - Will Rx zofran ODT for D/C Status: Acute Plan - Complete 23 hour perioperative antibiotics. - PT/OT consult for education and assistance. - Social work consult for discharge planning - Prescribed analgesics as needed - she will likely not need much for pain control in terms of medication strength, but is requesting extra strength acetaminophen for discharge. - DVT prophylaxis: Rivaroxaban, walking, and SCDs - Anticipation is for discharge to home with family/friends today 12/22/24 if the patient remains medically stable, pain is controlled, and they are safe with mobilization.
--- NOTE | 2024-12-22 10:01 | PC.SOCIAL ---
Back Up Worker Consult: SW met with patient and patient's daughter to see if they have any questions or needs for resources/support at home. Patient states she has none. Daughter also states she has none and is happy to have OT/PT coming to teach them skills for home. SW to assist if needs arise.
--- NOTE | 2024-12-22 11:42 | PC.NURSE ---
Discharge: patient pleasant and cooperative, A&O. VSS, afebrile. Dressing to left hip C/D/I. IV removed with tip intact. Discharge instructions provided, all questions answered. Discharged to home via wheelchair.
== END 2024-12-22 11:14 | disposition home or self-care (01) ==
LOC: OR 08:12 → MEDSURG 13:25
PROVIDERS: PCP Family Medicine; Visit Provider Orthopaedic Surgery Sports Medicine
PROC: (CPT 27130; principal; 2024-12-21 10:45)
DX: M16.12 Unilateral primary osteoarthritis, left hip (principal); G89.18 Other acute postprocedural pain; I10 Essential (primary) hypertension; E78.5 Hyperlipidemia, unspecified; Z79.82 Long term (current) use of aspirin; E87.1 Hypo-osmolality and hyponatremia; R11.2 Nausea with vomiting, unspecified
CPT/HCPCS: 27130; 01214; 36415; 64450; 73501; 76000; 76942; 82565; 84132; 84295; 84520; 85025; 86850; 86900; 86901; 97110; 97116; 97161; 97165; 97530; 97535; 99100; A9270; C1776; J0690; J1100; J1171; J2250; J2371; J2405; J2704; J2795; J3010; J7120

== ENCOUNTER 2025-03-03 10:30 | Outpatient (RCR) | payer BC, SELFPAY | END 2025-04-21 09:34 | disposition home or self-care (01) | PROVIDERS: PCP Family Medicine; Visit Provider Orthopaedic Surgery Sports Medicine | DX: Z47.1 Aftercare following joint replacement surgery (principal); Z96.642 Presence of left artificial hip joint; Z51.89 Encounter for other specified aftercare | CPT/HCPCS: 97032; 97110; 97116; 97140; 97161 ==